=== PATIENT | male | born 1985 ===

== ENCOUNTER 2021-01-21 14:17 | Emergency (ER) | payer OTHER | END 2021-01-21 16:21 | disposition left against medical advice (07) | LOC: ER 14:17 | DX: M79.606 Pain in leg, unspecified (principal); Z53.21 Procedure and treatment not carried out due to patient leaving prior to being seen by health care provider ==

== ENCOUNTER 2021-02-25 15:10 | Outpatient (CLI) | payer OTHER | END 2021-02-25 23:59 | disposition home or self-care (01) | LOC: PRE-OP 15:10 → EDSTATUS 02-26 07:30 | PROVIDERS: ATTEND Orthopaedic Surgery | DX: S60.452A Superficial foreign body of right middle finger, initial encounter (principal) ==